=== PATIENT | female | born 1955 | race Caucasian/White ===

== ENCOUNTER 2020-05-12 11:17 | Emergency (ER) | payer MEDICARE, MEDICAID, SELFPAY ==
[2020-05-12 11:25] VITALS: BP 123/88; PULSE 93; RESP 20; TEMP 36.5; O2SAT 98
--- NOTE | 2020-05-12 11:38 | ED.URI ---
HPI - URI/Sore Throat General Chief Complaint: Upper Respiratory Infection Stated Complaint: sinus infection Source: patient Mode of arrival: ambulatory Limitations: no limitations History of Present Illness HPI Narrative: Patient is a 64-year-old female who presents complaining of sinusitis. Patient reports a history of sinusitis and reports facial pain and pressure x2 weeks. Reports recent URI in the past month. Denies exposure to Covid. She denies fever. She also reports needing a refill on Lasix, as she has been unable to get into Dr. Rivers's office in a timely manner. MD elicited complaint: sinus pain Related Data Home Medications Medication Instructions Recorded Confirmed albuterol sulfate 2 puff INHALATION Q4-6H 05/12/20 05/12/20 albuterol sulfate 2.5 mg INHALATION Q4H PRN 05/12/20 05/12/20 fluticasone propionate 1 spray INTRANASAL DAILY 05/12/20 05/12/20 furosemide 10 mg PO BID PRN 05/12/20 05/12/20 gabapentin 800 mg PO TID 05/12/20 05/12/20 levothyroxine 100 mcg PO DAILY 05/12/20 05/12/20 pantoprazole 40 mg PO DAILY 05/12/20 05/12/20 potassium chloride 40 meq PO DAILY 05/12/20 05/12/20 Allergies Allergy/AdvReac Type Severity Reaction Status Date / Time morphine Allergy Mild Unknown Verified 05/12/20 11:44 tetracycline Allergy Mild Hives Unverified 05/12/20 11:44 aspirin Allergy Unknown Unknown Verified 05/12/20 11:44 prednisone AdvReac Irritable Verified 05/12/20 11:44 Review of Systems Review of Systems: Narrative: CONSTITUTIONAL: Denies fever, chills, or sweats. EYES: Denies visual changes, redness, or discharge. ENT: Reports congestion, denies sore throat or otalgia. CARDIOVASCULAR: Denies chest pain, palpitations, or edema. RESPIRATORY: Denies cough or dyspnea. GASTROINTESTINAL: Denies abdominal pain, nausea, vomiting, or diarrhea. GENITOURINARY: Denies dysuria or hematuria. SKIN: Denies rash or itching. MUSCULOSKELETAL: Denies back pain, joint pain, or myalgia. NEUROLOGIC: Denies headache, numbness, dizziness, or weakness. PSYCHIATRIC: Denies anxiety or depression. [facility] Past Medical History Medical History Anxiety Asthma Back pain CHF (congestive heart failure) COPD (chronic obstructive pulmonary disease) Pneumonia Sinusitis Surgical History Surgical History Hx of cholecystectomy Family History Family History (Updated 05/12/20 @ 11:52 by SANDI Molina) Other Diabetes mellitus Heart disease Social History Social History (Updated 05/12/20 @ 11:52 by SANDI Molina) Smoking status: Current every day smoker Tobacco type: cigarettes Alcohol intake: never Substance use: never Living arrangements: alone Exam Narrative: Exam Narrative: GENERAL: Well-appearing, well-nourished, and in no acute distress. HEAD: Normocephalic, atraumatic. EYES: EOMI. No redness or drainage. Conjunctiva are normal. ENT: Mucous membranes pink and moist. Nares clear. No rhinorrhea. TMs normal bilaterally. Throat normal. Uvula midline. Frontal and maxillary sinus tenderness with palpation. NECK: AROM. Supple. No lymphadenopathy. CHEST: No respiratory distress. HEART: Regular rate and rhythm. No murmur appreciated. Normal peripheral pulses. EXTREMITIES: Normal range of motion. Mild generalized edema. SKIN: Warm, dry, no rash. NEURO: No focal deficits. Alert and oriented x3. Gait steady. PSYCH: Normal affect. No signs of depression or anxiety. Course Vital Signs Vital signs: Vital Signs Temperature 36.5 C 05/12/20 11:25 Pulse Rate 93 05/12/20 11:25 Respiratory Rate 20 05/12/20 11:25 Blood Pressure 123/88 05/12/20 11:25 Pulse Oximetry 98 05/12/20 11:25 Temperature 36.5 C 05/12/20 11:25 Pulse Rate 93 05/12/20 11:25 Respiratory Rate 20 05/12/20 11:25 Blood Pressure 123/88 05/12/20 11:25 Pulse Oximetry 98 05/12/20 11
== END 2020-05-12 12:00 | disposition home or self-care (01) ==
PROVIDERS: Emergency Provider Nurse Practitioner; PCP Family Medicine
DX: J01.01 Acute recurrent maxillary sinusitis (principal); F17.210 Nicotine dependence, cigarettes, uncomplicated; J45.909 Unspecified asthma, uncomplicated; J44.9 Chronic obstructive pulmonary disease, unspecified; I50.9 Heart failure, unspecified
CPT/HCPCS: 99213; G0463